=== PATIENT | male | born 1985 | race Caucasian/White ===

== ENCOUNTER 2022-12-14 13:07 | Emergency (ER) | payer MEDICAID, SELFPAY ==
[2022-12-14] VITALS (12 sets, daily range): BP systolic 137–159; BP diastolic 91–110; PULSE 114–138; RESP 16–21; TEMP 36.7–37.9; O2SAT 92–95; BMI 32.5
--- NOTE | 2022-12-14 13:05 | ECG_ITS ---
APPROVED REPORT Exam: Resting ECG HR:135 bpm ECG Measurements Heart Rate 135 AXES UT 153 P 49 QRSd 90 QRS 46 QT 285 T 52 QTc 364 Conclusion SINUS TACHYCARDIA ABNORMAL RHYTHM ECG UNCONFIRMED REPORT Electronically signed by : Antonio Cee MD 12/14/2022 21:23:21
--- NOTE | 2022-12-14 13:19 | XR_ITS ---
FINAL REPORT CLINICAL HISTORY: Chest Pain, SOA FINDINGS: TWO-VIEW CHEST Two views of the chest were obtained. The heart size and pulmonary vascularity are within normal limits. The mediastinum is normal. No acute pulmonary abnormality is identified. There is no pneumothorax. The bony thorax is intact. IMPRESSION: No active cardiopulmonary disease. Reviewed, Interpreted and Dictated by Casey Bustamante MD Transcribed by Venus Elias Authenticated and [facility]
--- NOTE | 2022-12-14 13:26 | PC.NURSE ---
pt to radiology via wc with emergency medical technician basic
[2022-12-14 13:29] LABS: Coronavirus 19, PCR Not Detected (NotDetected); Influenza A, PCR Not Detected (NotDetected); Influenza B, PCR Not Detected (NotDetected)
[2022-12-14 13:35] LABS: Basophils # 0.1 K/mm3 (0-0.2); Basophils % 0.6 % (0.1-2.0); Eosinophils # 0.1 K/mm3 (0.0-0.4); Eosinophils % 1.1 % (0.1-12.0); Hematocrit 44.7 % (42.0-52.0); Hemoglobin 15.1 g/dL (14.1-18.0); Lymphocytes # 0.8 K/mm3 (0.7-4.5); Lymphocytes % 6.7 % (10-50); Mean Corpuscular HGB Conc 33.8 g/dL (31.8-35.4); Mean Corpuscular Hemoglobin 31.4 pg (27.0-31.2); Mean Corpuscular Volume 92.7 fl (80-94); Mean Platelet Volume 9.9 fl (7.4-10.4); Monocytes # 0.5 K/mm3 (0.1-1.0); Monocytes % 3.9 % (1.7-9.3); Neutrophils # 10.1 K/mm3 (1.8-7.8); Neutrophils % 87.6 % (37.0-80.0); Platelet Count 216 K/mm3 (142-424); Red Blood Count 4.82 M/mm3 (4.60-6.20); White Blood Count 11.5 K/mm3 (4.8-10.8)
[2022-12-14 13:39] LABS: MANUAL DIFFERENTIAL MANUAL DIFFERENTIAL (MANUAL DIFF)
[2022-12-14 13:40] LABS: Alanine Aminotransferase 49 U/L (12-78); Albumin Level 4.7 g/dl (3.5-5.0); Albumin/Globulin Ratio 1.4 (1.1-1.8); Alkaline Phosphatase 80 U/L (38-126); Anion Gap 13.9 mEq/L (5-15); Aspartate Amino Transferase 43 U/L (17-59); Bilirubin,Total 0.7 mg/dl (0.2-1.3); Blood Urea Nitrogen 11 mg/dl (9-20); Calcium 9.7 mg/dl (8.4-10.2); Carbon Dioxide 25 mmol/L (22.0-30.0); Chloride 103 mmol/L (98-107); Creatinine Clearance Estimated 154 mL/min (50-200); Estimated Glomerular Filt Rate 84 ml/min (>60); GFR (African American) 101 ML/MIN (>60); Globulin 3.3 g/dL (1.3-3.2); Glucose 114 mg/dl (74-100); Lactic Acid 0.9 mmol/L (0.7-2.1); Potassium 3.9 mmoL/L (3.5-5.1); Sodium 138 mmol/L (136-145)
[2022-12-14 13:56] LABS: Lymphocytes % 8 % (10-50); Monocytes % 7 % (2-9); Neutrophils % 85 % (42-76); Platelet Estimate Normal; RBC Morphology Normal; Total Cells Counted 100
[2022-12-14 13:57] LABS: Procalcitonin 0.087 ng/mL (0.0-2.0)
[2022-12-14 14:43] LABS: Troponin I < 0.01 ng/ml (0.00-0.034)
--- NOTE | 2022-12-14 15:30 | CT_ITS ---
FINAL REPORT TECHNIQUE: Thin section axial CT with contrast with multiplanar reconstruction. This study was performed with techniques to keep radiation doses as low as reasonably achievable (ALARA). Individualized dose reduction techniques using automated exposure control or adjustment of mA and/or kV according to the patient's size were employed. CLINICAL HISTORY: soa; tachycardia FINDINGS: Pulmonary vessels enhance in normal fashion without evidence of embolism. Thoracic aorta shows no dissection or aneurysm. No pulmonary mass or infiltrate is present. There is no significant pleural effusion. There is no significant pericardial effusion. There is mild nonspecific mediastinal, hilar, and bilateral axillary adenopathy. There is fatty infiltration of the liver. IMPRESSION: No evidence of pulmonary embolism. No acute lung disease to count for symptoms. Nonspecific mild adenopathy. Reviewed, Interpreted and Dictated by Casey Bustamante MD Transcribed by Kathleen Lopez Authenticated and [facility]
--- NOTE | 2022-12-14 16:05 | PC.NURSE ---
CARLEY OLMEDO at
[2022-12-14 17:12] LABS: Microscopic, Urine URINE MICROSCOPIC (MICROSCOPIC)
[2022-12-14 17:18] LABS: Appearance,Urine CLEAR (Clear); Bilirubin,Urine Negative (Negative); Blood, Urine Negative (Negative); Color,Urine YELLOW (Yellow); Glucose,Urine (UA) Negative (Negative); Ketones,Urine Negative (Negative); Leukocyte Esterase,Urine Negative (Negative); Nitrate,Urine Negative (Negative); PH,Urine 7.5 (5.0-8.5); Protein,Urine Negative (Negative); Urobilinogen,Urine 0.2 EU/dl (0.2)
[2022-12-14 17:29] LABS: Bacteria,Urine Trace /lpf; Squamous Epithelial Cell,Urine Occasional #/hpf (0-5)
[2022-12-14 17:30] LABS: Barbiturates Screen,Urine Negative ng/ml (<200)
[2022-12-14 17:31] LABS: Amphetamine/Metha Screen,Urine Negative ng/ml (<1000); Benzodiazepines Screen,Urine Negative ng/ml (<200)
[2022-12-14 17:32] LABS: Cannabinoid Screen,Urine Positive ng/ml (<50)
[2022-12-14 17:33] LABS: Methadone Screen,Urine Negative ng/ml (<300)
[2022-12-14 17:34] LABS: Opiate Screen,Urine Negative ng/ml (<300)
[2022-12-14 17:35] LABS: Phencyclidine Screen,Urine Negative ng/ml (<25)
--- NOTE | 2022-12-14 17:38 | PC.NURSE ---
PT REQUESTS TO LEAVE, STATES HE WONT HAVE A RIDE HOME FOR DAYS. PT EDUCATED PER DR. RUIZ. PT REQUESTS AMA FORM.
[2022-12-14 17:40] LABS: Cocaine Screen,Urine Negative ng/ml (<300)
--- NOTE | 2022-12-14 20:10 | [facility].EDCP ---
Discharge Plan Disposition Patient Disposition: Left Against Medical Advice Prescriptions Prescriptions: New clindamycin HCl 300 mg capsule 300 mg PO Q8H 7 Days Qty: 21 0RF No Action levetiracetam [Keppra] 500 mg Tablet 500 mg PO BID clonazepam [Klonopin] 1 mg Tablet 1 mg PO TID Referrals Follow up/Referrals: Provider,Referral, [Primary Care Provider] - See instructions Clinical Impressions Clinical Impression: Tachycardia Discharge ED Provider: Raghavendra Boyle Chest Pain HPI General Chief Complaint: Chest Pain Stated Complaint: Chest Pain Time Seen by Provider: 12/14/22 13:10 Mode of Arrival: Ambulatory Source of Information: Patient Limitations: No Limitations Description of Symptoms (Recalled from ER Triage Doc. by RN): 37 M, Full Code presents with 2 weeks of chest pain r/t productive cough. He believes this is pneumonia and dehydration. Patient adds that he has an abscess on the back of his right leg that he would like evaluated as well. Attending at bedside History of Present Illness HPI narrative: Patient is a 31-year-old male with past medical history of smoking who presents with 2 weeks of chest pain. He says that his symptoms of been going on for the last 2 weeks but have gotten progressively worse over the last couple days so he wanted to come in for evaluation. He says that he has been having green sputum production as well. He says that he believes that he might have pneumonia. He says he is not eating and drinking well during this time as well. He also says he has an abscess on his right inner thigh that he thinks might be causing his issues as well. He says he has been having some fever and chills. He says his pain is worse when he takes a deep breath. He has been having some coughing. Related Data Home Medications Medication Instructions Recorded Confirmed clonazepam 1 mg tablet (Klonopin) 1 mg PO TID Supplement 12/14/22 12/14/22 levetiracetam 500 mg tablet 500 mg PO BID Supplement 12/14/22 12/14/22 (Keppra) Previous Rx's Medication Instructions Recorded clindamycin HCl 300 mg capsule 300 mg PO Q8H 7 days #21 caps 12/14/22 Allergies Allergy/AdvReac Type Severity Reaction Status Date / Time No Known Allergies Allergy Verified 12/14/22 13:18 [facility] Disclaimer: The information contained in this section may have been updated after the patient was seen, as this information can be updated by other users. Medical History (Updated 12/14/22 @ 17:39 by Raghavendra Boyle MD) Seizure disorder Family History (Updated 12/14/22 @ 13:29 by Turner Brizuela, RN) Other No significant family history Social History (Updated 12/14/22 @ 13:32 by Turner Brizuela RN) Smoking Status: Current every day smoker tobacco type: cigarettes packs per day: 1 years smoked: 10 alcohol intake: former current occupational status: disabled Travel in the last 8 weeks: None lives independently: Yes marital status: single education level: high school ROS Obtained: Yes All systems reviewed & no additional complaints except as documented A 14 point review of system was obtained and otherwise negative except per HPI Physical Exam General General appearance: alert and in no apparent distress Head Head exam: atraumatic, normocephalic and normal inspection Eye Eye exam: Present normal appearance, PERRL and EOMI ENT ENT exam: Present normal exam, normal oropharynx, mucous membranes moist and normal external ear exam Neck Neck exam: Present normal inspection, full ROM and trachea midline; Absent meningismus or lymphadenopathy Chest Chest inspection: Present normal inspection and symmetric chest wall rise; Absent tenderness Respiratory Respiratory exam: Present normal lung sounds bilaterally; Absent respiratory distress Expanded Respiratory Exam Location: Left: rhonchi and Right: rhonchi Cardiovascular Cardiovascular exam: Present normal rhy
== END 2022-12-14 17:50 | disposition left against medical advice (07) ==
PROVIDERS: Emergency Provider Student in an Organized Health Care Education/Training Program
DX: R00.0 Tachycardia, unspecified (principal); R07.9 Chest pain, unspecified; R05.9 Cough, unspecified; G40.909 Epilepsy, unspecified, not intractable, without status epilepticus; F17.210 Nicotine dependence, cigarettes, uncomplicated; Z20.822 Contact with and (suspected) exposure to COVID-19
CPT/HCPCS: 71046; 71275; 80053; 80305; 81001; 83605; 84145; 84484; 85007; 85025; 87040; 93005; 96361; 96374; 96375; 99285; C9803; J0131; Q9967; U0003; U0005